=== PATIENT | male | born 1990 | race Caucasian/White ===

== ENCOUNTER → 2019-12-30 08:53 | Outpatient (BNVA) | payer MEDICAID, SELFPAY | PROVIDERS: PCP Nurse Practitioner Family; Visit Provider Specialist | DX: F31.9 Bipolar disorder, unspecified (principal); F07.81 Postconcussional syndrome; Z87.891 Personal history of nicotine dependence | CPT/HCPCS: 99213 ==

== ENCOUNTER → 2020-06-28 08:52 | Outpatient (BNVA) | payer MEDICAID, SELFPAY | PROVIDERS: PCP Nurse Practitioner Family; Visit Provider Specialist | DX: F07.81 Postconcussional syndrome (principal); R41.1 Anterograde amnesia | CPT/HCPCS: 99212 ==